=== PATIENT | female | born 1995 | race Caucasian/White ===

== ENCOUNTER → 2017-01-10 | Outpatient (CLI) | payer OTHER ==
[~2017-01-10] MED LIST: ALBUAER2 INH; ASCA500 PO; BIOTCAP2 PO; MULTTAB58 PO; SERT25TA PO; [UNRECOGNIZED DRUG - CODE] PO
--- NOTE | 2017-01-10 14:53 | DIAGNOSTIC IMAGING REPORT ---
LEFT KNEE 4 OR MORE HISTORY: 21 years-old Female LEFT KNEE PAIN COMPARISON: Left knee radiographs 01/22/2016 TECHNIQUE: Frontal view of the bilateral knees with lateral and tunnel views of the left knee. FINDINGS: No acute fracture or dislocation identified involving either knee. There are no significant degenerative changes. Post surgical changes from prior ACL repair noted within the left knee. There is a small left knee joint effusion. No soft tissue density is seen within the intercondylar notch to suggest cyclops lesion on these radiographs. No intra-articular loose body or osteochondral defect. IMPRESSION: 1. No acute fracture or dislocation. 2. Postsurgical changes compatible with prior ACL repair of the left knee. The above report was generated using voice recognition software. It may contain grammatical, syntax or spelling errors. Electronically signed by: Dru Jacob M.D. 01/10/2017 2:52 PM Dictated Date/Time: 01/10/2017 2:50 PM
== END | disposition home or self-care (01) ==
LOC: C.RDSM 13:41
PROVIDERS: ATTEND Physician Assistant
DX: R52 Pain, unspecified (principal)

== ENCOUNTER → 2017-02-21 | Day surgery (SDC) | payer OTHER ==
[2017-01-14 11:35] VITALS: Ht 162.6 cm; Wt 68.2 kg
[~2017-02-21] VITALS: Ht 162.6 cm; Wt 68.2 kg
[~2017-02-21] MED LIST changes: +ATROPINE SULFATE 0.1 MG/ML 5ML SYR IV PRN; +BUPIVACAINE/EPINEPHRINE 0.5% MPF 1:200,000 10 ML VIAL ONE; +CEFAZOLIN 2000 MG/60 ML D5W IV SCH; +DEXAMETHASONE SOD INJ 4 MG/ML VIAL ONE; +EpHEDrine SULFATE INJ 50 MG/ML AMP IV PRN; +FENTANYL CITRATE INJ 50 MCG/1 ML 2 ML VIAL IV PRN; +FENTANYL CITRATE INJ 50 MCG/1 ML 2 ML VIAL ONE; +HYDROCODONE/ACETAMOPHEN 5/325MG TAB ONE; +HYDROCODONE/ACETAMOPHEN 5/325MG TAB PO PRN; +KETOROLAC TROMETHAMINE 30 MG/ML VIAL ONE; +LACTATED RINGER'S 1000ML 1,000 ML IV SCH; +LIDOCAINE HCL 2% 2 ML VIAL (20MG/ML) ONE; +MIDAZOLAM HCL 1 MG/ML 2ML VIAL ONE; +ONDANSETRON INJ 2 MG/ML 2 ML VIAL IV PRN; +ONDANSETRON INJ 2 MG/ML 2 ML VIAL ONE; +PROPOFOL IV EMULSION 10 MG/ML 20 ML VIAL IV ONE; +SODIUM CHLORIDE 0.9% 1000ML 1,000 ML IV SCH
--- NOTE | 2017-02-21 06:35 | History & Physical Bridge Note ---
H&P Re-Evaluation Bridge Note: I have examined the patient, reviewed the History & Physical and in the interval since the performance of the History & Physical I have noted the following changes of clinical significance: No changes noted. consent obtained.
--- NOTE | 2017-02-21 06:37 | Discharge Instructions ---
Discharge Instructions Date of Service Feb 21, 2017. Visit Reason for Visit: Left Knee Prepatellar Cyst Discharge Discharge Diagnosis / Problem: same Discharge Goals Goal(s): Decrease discomfort, Improve function Medications Stopped Medications Name(s): na Restart Stopped Medication(s): use scripts as directed Activity Recommendations Activity Limitations: as noted below Lifting Limitations: until after follow-up appointment Exercise/Sports Limitations: until after follow-up appointment May Resume Sexual Activity: when tolerated Shower/Bathe: keep incision dry Driving or Machine Use: resume 1 day after discharge Weightbearing Status: Left weightbearing (as tolerated) Anesthesia . Post Anesthesia Instructions: If you have had General Anesthesia or IV Sedation: * Do not drive today. * Resume driving when surgeon permits. * Do not make important decisions or sign legal documents today. * Call surgeon for: 1. Temperature elevations greater than 101 degrees F. 2. Uncontrollable pain. 3. Excessive bleeding. 4. Persistent nausea and vomiting. 5. Medication intolerance (nausea, vomiting or rash). * For nausea and vomiting use only clear liquids such as: tea, soda, bouillon until nausea subsides, then gradually increase diet as tolerated. * If you have any concerns or questions, call your surgeon's office. If physician is unavailable and it is an emergency, call 911 or go to the nearest emergency room. . Instructions / Follow-Up Instructions / Follow-Up DIET: * Resume previous diet. MEDICATIONS: * Please take your prescriptions as instructed at your pre-op appointment and/ or see medication discharge instructions listed above. * If concerns develop, call your physician's office at . SPECIAL CARE INSTRUCTIONS: * Ice/Elevate as instructed. * Keep dressing clean, dry, intact. * Your surgical extremity may be discolored due to prepping agents used on the skin. A bluish-green tint is a normal variant and should not cause alarm. Call your doctor at [phone] if: * Temperature above 101 degrees * Pain not relieved by pain medicine ordered * There is increased drainage or redness from any incision * You have any unanswered questions, problems or concerns. FOLLOW UP VISIT: * If not already scheduled, please call the office at to schedule a follow-up appointment. Diet Recommendations Recommended Home Diet: resume previous diet Procedures Procedures Performed: see op note Pending Studies Studies pending at discharge: yes List of pending studies: tissue path Medical Emergencies . Who to Call and When: Medical Emergencies: If at any time you feel your situation is an emergency, please call 911 immediately. . Non-Emergent Contact Non-Emergency issues call your: Specialist Call Non-Emergent contact if: temperature is above 101.5, wound has increased drainage, wound has increased redness, wound has increased pain . . "Provider Documentation" section prepared by Flakito Camarillo. .
--- NOTE | 2017-02-21 07:39 | [facility] Post Operative Brief Note ---
Immediate Operative Summary Operative Date Feb 21, 2017. Pre-Operative Diagnosis Left Knee Prepatellar Cyst, Retained Hardware Post-Operative Diagnosis Same Procedure(s) Performed Left Knee Soft Tissue Mass Excisional Biopsy, Left Tibia Deep Screw Removal Surgeon Dr Camarillo Boxer Operator Surgeon(s) Get Shah PA-C Estimated Blood Loss Trace Findings soft tissue mass /retained screw tibia Fluids (cc crystalloids) 700cc Specimens A: Soft Tissue Mass Anterior Bursa Drains none Anesthesia LMA Complication(s) None Disposition Recovery Room / PACU
--- NOTE | 2017-02-21 07:47 | [facility] Operative Report ---
Operative Report Operative Date Feb 21, 2017. Pre-Operative Diagnosis Left Knee Prepatellar Cyst, Retained Hardware Post-Operative Diagnosis Left knee Same Procedure(s) Performed Left Knee Soft Tissue Mass Excisional Biopsy, Left Tibia Deep Screw Removal Surgeon Dr Camarillo Charge Aide Surgeon(s) Get Shah PA-C Estimated Blood Loss Trace Findings Retained tibial screw, soft tissue mass prepatellar area Fluids (cc crystalloids) 700cc Specimens A: Soft Tissue Mass Anterior Bursa Drains none Complication(s) None Disposition Recovery Room / PACU Indications This 22-year-old white female presented the office with complaints of anterior left knee pain and sensitivity over a small firm mass in her prepatellar area. She also had significant tenderness over her retained anterior cruciate ligament tibial screw. She had tried conservative care measures without success. Patient elected to proceed with surgical intervention after being educated about potential risks and outcomes. Description of Procedure Patient was taken to the operating room and given general anesthesia. She was prepped and draped in usual sterile fashion. Please see Dr. Camarillo's operative report for specifics of the procedure. I was present for the entire case from initial patient positioning through final wound closure. Assistance was provided in tissue traction, hemostasis, hardware removal, and final wound closure. Patient was taken to the recovery room in satisfactory condition. I attest to the content of the Intraoperative Record and any orders documented therein. Any exceptions are noted below.
[2017-02-21] MEDS: FENTANYL CITRATE INJ 50 MCG/1 ML 2 ML VIAL IV PRN ×2 (08:05→08:12)
--- NOTE | 2017-02-21 08:15 | OPERATIVE REPORT ---
DATE OF OPERATION: 02/21/2017 PREOPERATIVE DIAGNOSIS: Soft tissue mass, anterior knee, retained hardware left lower extremity. POSTOPERATIVE DIAGNOSIS: Same. OPERATION PERFORMED: 1. Removal of tibial screw, status post anterior cruciate ligament reconstruction left knee. 2. Separate incision open excisional biopsy soft tissue mass anterior bursa, left knee. SURGEON: Dr. Camarillo. FURNITURE UPHOLSTERER: Yoni Shah PA-C. No resident or fellow available. PERIOPERATIVE SITUATION: Medically cleared female who had a similar procedure removed from the bursa postop from ACL reconstruction. It had some granulomatous type changes, but no neoplastic findings. There was no epithelioid sarcoma. It has grown back slightly over the last 18 months and she wished to have it excised again. In addition, wants to have her screw removed. Consent was obtained. All risks and complications including recurrence discussed. Tissue will be sent for pathology. PROCEDURE: The patient appropriately identified, site verified, consent verified and antibiotics confirmed as being given. The left lower extremity was prepped and draped in usual routine fashion. Tourniquet inflated to 275 mmHg for a total of 15 minutes after exsanguination of limb with a rubber Esmarch bandage. The anteromedial incision was then addressed first. It was localized with fluoro and a minimal incision made over the screw. Subperiosteal dissection carried out and the screw removed without difficulty. The wound was irrigated and closed with 2-0 plain and sen. A separate incision was then made over the anterior aspect of the palpable soft tissue mass which was approximately 5 x 5 x 5 mm. Full thickness flaps raised. The full thickness excision occurred down to the peritenon. There was no extension into the peritenon or the patellar tendon. A marginal excision was then completed. There was no palpable recurrence. There was no palpable mass. The wound was irrigated and in order to avoid any kind of reactive stitch fibrosis was just closed with full thickness flap stainless steel clips. Appropriate dressing applied and the patient transferred to recovery room in satisfactory condition having tolerated the procedure well. Permanent pathology pending. Estimated blood loss was trace. Crystalloid 700 mL. DVT prophylaxis with aspirin. I attest to the content of the Intraoperative Record and any orders documented therein. Any exception s are noted below.
--- NOTE | 2017-02-21 08:35 | Anesthesia Progress Nt - [facility] ---
Anesthesia Post Op Note Date & Time Feb 21, 2017 at 08:35 Vital Signs Pain Intensity: 6 Vital Signs Past 12 Hours Date Time Temp Pulse Resp B/P (MAP) Pulse Ox O2 Delivery O2 Flow Rate FiO2 02/21/17 08:26 65 21 02/21/17 08:26 66 21 118/76 99 02/21/17 08:23 36.9 67 20 118/76 99 Room Air 02/21/17 08:21 65 16 02/21/17 08:21 64 16 120/77 99 02/21/17 08:18 124/74 02/21/17 08:16 76 18 100 02/21/17 08:16 76 18 02/21/17 08:11 72 17 02/21/17 08:11 70 17 127/77 100 02/21/17 08:06 69 15 126/82 100 02/21/17 08:06 67 15 02/21/17 08:02 115/77 02/21/17 08:01 69 15 100 02/21/17 08:01 71 15 02/21/17 07:56 62 11 02/21/17 07:56 62 11 101/63 100 02/21/17 07:51 62 14 105/64 100 02/21/17 07:51 62 14 02/21/17 07:46 62 10 02/21/17 07:46 61 10 109/63 100 02/21/17 07:42 104/63 02/21/17 07:41 62 100 02/21/17 07:41 62 02/21/17 07:41 36.7 61 12 104/63 100 Mask 6 Notes Mental Status: alert / awake / arousable, participated in evaluation Pt Amnestic to Procedure: Yes Nausea / Vomiting: adequately controlled Pain: adequately controlled Airway Patency, RR, SpO2: stable & adequate BP & HR: stable & adequate Hydration State: stable & adequate Anesthetic Complications: no major complications apparent
[2017-02-21 08:49] VITALS: TEMP 36.6
[2017-02-21 09:09] VITALS: BP 108/72; PULSE 72; O2SAT 98
== END | disposition home or self-care (01) ==
LOC: X.SURG 06:04
PROVIDERS: ATTEND Physical Medicine & Rehabilitation Sports Medicine
DX: Z47.2 Encounter for removal of internal fixation device (principal); M70.42 Prepatellar bursitis, left knee; J45.909 Unspecified asthma, uncomplicated; Z83.3 Family history of diabetes mellitus; Z82.49 Family history of ischemic heart disease and other diseases of the circulatory system